=== PATIENT | female | born 1995 | race Hispanic/Latino ===

== ENCOUNTER 2019-05-17 02:44 | Emergency (ER) | payer SELFPAY ==
[~2019-05-17] VITALS: Ht 167.6 cm; Wt 85.7 kg
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
[2019-05-17] MEDS ORDERED: MOTRIN200 MG PO (04:09)
[2019-05-17] MEDS ORDERED: ROBAXIN-750750 MG PO (04:10)
== END 2019-05-17 04:15 | disposition home or self-care (01) ==
LOC: ER 02:44
DX: M54.2 Cervicalgia (principal); S16.1XXA Strain of muscle, fascia and tendon at neck level, initial encounter; V43.52XA Car driver injured in collision with other type car in traffic accident, initial encounter; Y92.488 Other paved roadways as the place of occurrence of the external cause
CPT/HCPCS: 72125; 99283